=== PATIENT | female | born 1950 | race Caucasian/White ===

== ENCOUNTER 2017-08-28 09:44 | Emergency (ER) | payer MEDICARE ==
[~2017-08-28] VITALS: Ht 167.6 cm; Wt 72.7 kg
[2017-08-28 09:47] VITALS: BP 155/86
[2017-08-28 10:41] LABS: EOSINOPHILS # (AUTO) 0.2 X10'3 (0-0.9); LYMPHOCYTES # (AUTO) 1.5 X10'3 (1.1-4.8); MONOCYTES # (AUTO) 0.5 X10'3 (0-0.9); RED CELL DISTRIBUTION WIDTH 13.9 % (11.5-14.5)
[2017-08-28 10:43] LABS: BASOPHILS # (AUTO) 0.1 X10'3 (0-0.2); BASOPHILS % (AUTO) 1.2 % (0-1); HEMATOCRIT 48.1 % (35.0-45.0); HEMOGLOBIN 16.1 g/dl (12.0-16.0); LYMPHOCYTES % (AUTO) 16.2 % (21-51); MEAN CORPUSCULAR HEMOGLOBIN 27.6 PG (27.0-31.0); MEAN CORPUSCULAR HGB CONC 33.5 % (33.0-36.5); MEAN CORPUSCULAR VOLUME 82.5 FL (78-98); MEAN PLATELET VOLUME 8.7 FL (7.4-10.4); MONOCYTES % (AUTO) 5.8 % (2-12); NEUTROPHILS # (AUTO) 6.9 X10'3 (1.8-7.7); NEUTROPHILS % (AUTO) 74.8 % (42-75); PLATELET COUNT 242 X10'3 (140-440); RED BLOOD COUNT 5.83 X10'6 (4.20-5.60); WHITE BLOOD COUNT 9.2 X10'3 (4.5-11.0)
[2017-08-28 10:55] LABS: ALANINE AMINOTRANSFERASE 20 U/L (12-78); ALBUMIN 4.1 G/DL (3.4-5.0); ALBUMIN/GLOBULIN RATIO 1.1 (1.1-1.5); ALKALINE PHOSPHATASE 69 IU/L (46-116); ANION GAP 12 (8-16); ASPARTATE AMINO TRANSFERASE 17 U/L (10-37); BILIRUBIN,TOTAL 0.4 MG/DL (0.1-1.0); BLOOD UREA NITROGEN 10 MG/DL (7-18); BUN/CREATININE RATIO 15.9 (6.6-38.0); CALCIUM 8.8 MG/DL (8.5-10.1); CHLORIDE 105 MMOL/L (99-107); CREATININE 0.63 MG/DL (0.40-0.90); GLUCOSE 94 MG/DL (70-104); POTASSIUM 4.3 MMOL/L (3.5-5.1); SODIUM 141 MMOL/L (135-145); TOTAL CARBON DIOXIDE 23.6 MMOL/L (24-32); eGFR > 90 ML/MIN
== END 2017-08-28 12:23 | disposition left against medical advice (07) ==
LOC: ER 09:44
DX: R07.89 Other chest pain (principal); Z53.21 Procedure and treatment not carried out due to patient leaving prior to being seen by health care provider
CPT/HCPCS: 36415; 80053; 84484; 85025; 93005

== ENCOUNTER 2017-12-05 12:29 | Outpatient (CLI) | payer MEDICARE, BC | END 2017-12-05 23:59 | disposition home or self-care (01) | LOC: CARD DIAG 12:29 | PROVIDERS: ATTEND Internal Medicine Cardiovascular Disease | DX: I08.2 Rheumatic disorders of both aortic and tricuspid valves (principal) | CPT/HCPCS: 93306 ==

== ENCOUNTER 2018-09-08 13:33 | Outpatient (CLI) | payer MEDICARE, BC | END 2018-09-08 23:59 | disposition home or self-care (01) | LOC: RAD 13:33 | PROVIDERS: ATTEND Emergency Medicine | DX: Z45.2 Encounter for adjustment and management of vascular access device (principal) | CPT/HCPCS: 36569; 76937 ==

== ENCOUNTER 2019-01-06 09:37 | Inpatient (IN) | payer MEDICARE, BC ==
[2019-01-06] VITALS (10 sets, daily range): BP systolic 133–152; BP diastolic 59–78
[~2019-01-06] VITALS: Ht 167.6 cm; Wt 66.5 kg
[2019-01-06] MEDS ORDERED: aspirin 81mg tab.chew PO ONE (10:35)
[2019-01-06] MEDS ORDERED: nitroGLYCERIN 0.4mg SUBLingual tab SL PRN (10:35)
[2019-01-06 10:37] LABS: BASOPHILS # (AUTO) 0.1 X10'3 (0-0.2); BASOPHILS % (AUTO) 0.8 % (0-1); EOSINOPHILS # (AUTO) 0.1 X10'3 (0-0.9); EOSINOPHILS % (AUTO) 1.2 % (0-6); HEMATOCRIT 41.5 % (35.0-45.0); HEMOGLOBIN 13.8 g/dl (12.0-16.0); LYMPHOCYTES # (AUTO) 1.6 X10'3 (1.1-4.8); LYMPHOCYTES % (AUTO) 17.4 % (21-51); MEAN CORPUSCULAR HEMOGLOBIN 27.6 PG (27.0-31.0); MEAN CORPUSCULAR HGB CONC 33.2 g/dL (33.0-36.5); MEAN CORPUSCULAR VOLUME 83.1 FL (78-98); MEAN PLATELET VOLUME 8.4 FL (7.4-10.4); MONOCYTES # (AUTO) 0.5 X10'3 (0-0.9); MONOCYTES % (AUTO) 5.8 % (2-12); NEUTROPHILS # (AUTO) 6.9 X10'3 (1.8-7.7); NEUTROPHILS % (AUTO) 74.8 % (42-75); PLATELET COUNT 240 X10'3 (140-440); RED CELL DISTRIBUTION WIDTH 14.1 % (11.5-14.5); WHITE BLOOD COUNT 9.2 X10'3 (4.5-11.0)
[2019-01-06 10:42] LABS: ALANINE AMINOTRANSFERASE 16 U/L (12-78); ALBUMIN 3.5 G/DL (3.4-5.0); ALKALINE PHOSPHATASE 73 IU/L (46-116); ANION GAP 10 (8-16); ASPARTATE AMINO TRANSFERASE 21 U/L (10-37); BILIRUBIN,TOTAL 0.3 MG/DL (0.1-1.0); BLOOD UREA NITROGEN 11 MG/DL (7-18); BUN/CREATININE RATIO 20.4 (6.6-38.0); CALCIUM 8.4 MG/DL (8.5-10.1); CHLORIDE 109 MMOL/L (99-107); CREATININE 0.54 MG/DL (0.40-0.90); GLUCOSE 92 MG/DL (70-104); SODIUM 143 MMOL/L (135-145); TOTAL CARBON DIOXIDE 24.5 MMOL/L (24-32); TOTAL PROTEIN 6.9 G/DL (6.4-8.2); eGFR > 90 ML/MIN
[2019-01-06 10:48] LABS: PARTIAL THROMBOPLASTIN TIME 30 SECONDS (22-32)
--- NOTE | 2019-01-06 11:00 | NUR ---
DR OCHOA REVIEWED XRAY AND VERFIED PICC PLACEMENT. OKAYED PICC FOR USE.
--- NOTE | 2019-01-06 12:50 | NUR ---
pT IS NOW NPO. PT STATES SHE LAST ATE AN EGG WITH TWO YOLKS AT 0800 THIS AM
[2019-01-06] MEDS ORDERED: magnesium hydroxide 30ml (MOM) UD suspension PO PRN (12:55)
[2019-01-06] MEDS ORDERED: ondansetron/PF 4mg/2ml inj IV PRN (12:55)
[2019-01-06] MEDS ORDERED: morphine 2 MG/ML inj. syringe IV PRN ×2 (12:55)
[2019-01-06] MEDS ORDERED: mag hydrox/Alum hydrox/simeth 30ml oral suspension PO PRN (12:55)
[2019-01-06] MEDS: normal saline 1000ml 1,000 ML IV SCH ×2 (13:09→22:20)
[2019-01-06] MEDS ORDERED: IBUP-2417 PEG (13:27)
[2019-01-06] MEDS ORDERED: LIOT5TAB10 PO (13:27)
[2019-01-06] MEDS ORDERED: MULT1TAB74 PO (13:27)
[2019-01-06] MEDS ORDERED: LIDOcaine/PRILOcaine 5gm cream TP ONE (15:30)
[2019-01-06] MEDS ORDERED: verapamil 2.5 mg/ml inj IV ONE (16:33)
[2019-01-06] MEDS ORDERED: nitroGLYCERIN-Tridil 50MG/D5W 250 ML IV ONE (16:33)
[2019-01-06] MEDS ORDERED: midazolam 2 mg/2 ml injection ONE (16:33)
[2019-01-06] MEDS ORDERED: fentaNYL/PF 50MCG/1 ML 2ML syringe ONE (16:34)
[2019-01-06] MEDS ORDERED: iohexol 350 MG/ML 50ML vial IV ONE (16:34)
[2019-01-06] MEDS ORDERED: heparin 1,000unit/ml 10ml vial 10 ML ONE (16:34)
[2019-01-06] MEDS ORDERED: iohexol 350MG/ML 100ml bottle IV ONE ×2 (16:34→17:24)
[2019-01-06] MEDS ORDERED: LIDOcaine 1% (10mg/ml)w/preservative injection 20ml MDV ONE (16:38)
--- NOTE | 2019-01-06 17:55 | NUR ---
PATIENT RETURNED TO ROOM 307 ALERT ORIENTED, CALM, AND COOPERATIVE. DENIES PAIN. PATIENT HAD A HEART CATH WITH RIGHT RADIAL APPROACH. BAND IS IN PLACE WITH NO SIGNS OF BLEEDING OR HEMATOMA. VITAL SIGNS STABLE. FIRST RELEASE OF AIR ORDERED FOR 1944, CHARGE NURSE JAYLENE MADE AWARE.
--- NOTE | 2019-01-06 18:00 | NUR ---
Patient in room MED 307. I have received report from Yumiko REESE and had the opportunity to ask questions and assume patient care.
[2019-01-06] MEDS: acetaminophen 325mg tablet PO PRN (18:57)
[2019-01-06] MEDS: carVEDilol 3.125mg tablet PO SCH (19:47)
[2019-01-06] MEDS ORDERED: heparin, porcine 5000 units/ml vial SQ SCH (20:00)
[2019-01-07 02:00] VITALS: BP 146/69
[2019-01-07] MEDS: acetaminophen 325mg tablet PO PRN (04:29)
[2019-01-07 05:07] LABS: BASOPHILS % (AUTO) 0.5 % (0-1); EOSINOPHILS # (AUTO) 0.2 X10'3 (0-0.9); EOSINOPHILS % (AUTO) 2.2 % (0-6); HEMATOCRIT 35.6 % (35.0-45.0); LYMPHOCYTES # (AUTO) 1.7 X10'3 (1.1-4.8); LYMPHOCYTES % (AUTO) 22.2 % (21-51); MEAN CORPUSCULAR HEMOGLOBIN 28.4 PG (27.0-31.0); MEAN CORPUSCULAR HGB CONC 33.8 g/dL (33.0-36.5); MEAN PLATELET VOLUME 8.4 FL (7.4-10.4); MONOCYTES # (AUTO) 0.5 X10'3 (0-0.9); MONOCYTES % (AUTO) 6.7 % (2-12); NEUTROPHILS # (AUTO) 5.4 X10'3 (1.8-7.7); NEUTROPHILS % (AUTO) 68.4 % (42-75); PLATELET COUNT 198 X10'3 (140-440); RED BLOOD COUNT 4.24 X10'6 (4.20-5.60); RED CELL DISTRIBUTION WIDTH 14.3 % (11.5-14.5); WHITE BLOOD COUNT 7.9 X10'3 (4.5-11.0)
[2019-01-07 05:19] LABS: ALBUMIN 3.1 G/DL (3.4-5.0); ANION GAP 8 (8-16); BLOOD UREA NITROGEN 9 MG/DL (7-18); BUN/CREATININE RATIO 15.3 (6.6-38.0); CALCIUM 8.5 MG/DL (8.5-10.1); CHLORIDE 110 MMOL/L (99-107); CHOL/HDL RATIO 3.2 (0.00-4.99); CHOLESTEROL 140 MG/DL (0-200); CREATININE 0.59 MG/DL (0.40-0.90); GLUCOSE 72 MG/DL (70-104); HDL CHOLESTEROL 44 MG/DL (35-60); LDL CHOLESTEROL 86 MG/DL (50-100); POTASSIUM 3.3 MMOL/L (3.5-5.1); SODIUM 144 MMOL/L (135-145); TOTAL CARBON DIOXIDE 25.8 MMOL/L (24-32); TRIGLYCERIDES 99 MG/DL (20-135); eGFR > 90 ML/MIN
[2019-01-07 06:00] VITALS: BP 142/66
--- NOTE | 2019-01-07 06:33 | NUR ---
Problems reprioritized. Patient report given, questions answered & plan of care reviewed with ALEX REESE.
[2019-01-07] MEDS ORDERED: aspirin 81mg tablet.DR PO SCH (08:00)
[2019-01-07] MEDS ORDERED: atorvastatin 20mg tablet PO SCH (08:00)
[2019-01-07] MEDS ORDERED: non-formulary drug (Multivitamins 1 TAB) PO SCH (08:00)
[2019-01-07] MEDS ORDERED: multivitamins, therapeutics tablet PO SCH (08:00)
[2019-01-07] MEDS ORDERED: liothyronine sod 5mcg tablet PO SCH (08:00)
[2019-01-07] MEDS: carVEDilol 3.125mg tablet PO SCH (08:30)
--- NOTE | 2019-01-07 08:51 | NUR ---
Paged hospitalist, "Dilia [id number]- Room 307 JujuJade has K+ 3.3, do you want to replace?"
[2019-01-07] MEDS ORDERED: potassium Cl 20 mEq SR tablet PO STA (08:52)
[2019-01-07] MEDS: normal saline 1000ml 1,000 ML IV SCH (08:52)
[2019-01-07] MEDS ORDERED: FLU VACC QS2019-20 36MOS UP/PF 60 MCG/0.5 ML SYRINGE IMVAC ONE (10:00)
--- NOTE | 2019-01-07 11:00 | NUR ---
[facility] med administration and documentation: I have reviewed and agree with all interventions, assessments performed and documented by Elisa REESE.
== END 2019-01-07 10:45 | disposition home or self-care (01) | DRG 880 ==
LOC: ER 09:38 → ED HOLD 12:55 → MED 3N 14:40
PROVIDERS: ADMIT Family Medicine; ATTEND Family Medicine
PROC: 4A023N7 Measurement of Cardiac Sampling and Pressure, Left Heart, Percutaneous Approach (ICD-10-PCS; principal; 2019-01-06)
PROC: B2111ZZ Fluoroscopy of Multiple Coronary Arteries using Low Osmolar Contrast (ICD-10-PCS; 2019-01-06)
PROC: B2151ZZ Fluoroscopy of Left Heart using Low Osmolar Contrast (ICD-10-PCS; 2019-01-06)
PROC: B3101ZZ Fluoroscopy of Thoracic Aorta using Low Osmolar Contrast (ICD-10-PCS; 2019-01-06)
DX: F41.9 Anxiety disorder, unspecified (principal); I24.9 Acute ischemic heart disease, unspecified; E87.6 Hypokalemia; E03.9 Hypothyroidism, unspecified; I25.10 Atherosclerotic heart disease of native coronary artery without angina pectoris; Z90.710 Acquired absence of both cervix and uterus; Z82.49 Family history of ischemic heart disease and other diseases of the circulatory system; Z98.49 Cataract extraction status, unspecified eye; Z28.21 Immunization not carried out because of patient refusal
CPT/HCPCS: 36415; 71045; 80048; 80053; 80061; 84484; 85025; 85610; 85730; 87081; 93005; 93458; 93567; 99152; 99153; 99285; A4620; A5120; C1769; C1894; G0378; J1644; J2001; J2250; J3010; J3490; J7030; Q2037; Q9967

== ENCOUNTER 2020-10-30 07:19 | Emergency (ER) | payer MEDICARE, BC ==
[~2020-10-30] VITALS: Ht 167.6 cm; Wt 70.0 kg
[~2020-10-30 07:19] MED LIST: IBUP-2417 PEG; LIOT5TAB10 PO; MULT-620 PO
[2020-10-30 08:48] LABS: BASOPHILS % (AUTO) 0.2 % (0-1); EOSINOPHILS # (AUTO) 0.1 X10'3 (0-0.9); EOSINOPHILS % (AUTO) 0.9 % (0-6); HEMATOCRIT 42.4 % (35.0-45.0); HEMOGLOBIN 14.1 g/dl (12.0-16.0); LYMPHOCYTES # (AUTO) 1.8 X10'3 (1.1-4.8); MEAN CORPUSCULAR HEMOGLOBIN 27.9 PG (27.0-31.0); MEAN CORPUSCULAR HGB CONC 33.1 g/dL (33.0-36.5); MEAN CORPUSCULAR VOLUME 84.2 FL (78-98); MEAN PLATELET VOLUME 8.5 FL (7.4-10.4); MONOCYTES # (AUTO) 1.6 X10'3 (0-0.9); MONOCYTES % (AUTO) 9.4 % (2-12); NEUTROPHILS % (AUTO) 78.5 % (42-75); PLATELET COUNT 235 X10'3 (140-440); RED BLOOD COUNT 5.04 X10'6 (4.20-5.60); RED CELL DISTRIBUTION WIDTH 14.2 % (11.5-14.5); WHITE BLOOD COUNT 16.6 X10'3 (4.5-11.0)
[2020-10-30 08:52] LABS: ALANINE AMINOTRANSFERASE 20 U/L (12-78); ALBUMIN 3.9 G/DL (3.4-5.0); ALBUMIN/GLOBULIN RATIO 1.1 (1.1-1.5); ALKALINE PHOSPHATASE 74 IU/L (46-116); ANION GAP 9 (8-16); ASPARTATE AMINO TRANSFERASE 20 U/L (10-37); BILIRUBIN,TOTAL 0.3 MG/DL (0.1-1.0); BLOOD UREA NITROGEN 13 MG/DL (7-18); BUN/CREATININE RATIO 19.1 (6.6-38.0); CALCIUM 8.7 MG/DL (8.5-10.1); CHLORIDE 105 MMOL/L (99-107); CREATININE 0.68 MG/DL (0.40-0.90); GLUCOSE 90 MG/DL (70-104); POTASSIUM 3.5 MMOL/L (3.5-5.1); SODIUM 144 MMOL/L (135-145); TOTAL CARBON DIOXIDE 30.3 MMOL/L (24-32); TOTAL PROTEIN 7.3 G/DL (6.4-8.2); eGFR 85 ML/MIN
[2020-10-30] MEDS ORDERED: aspirin 81mg tab.chew PO ONE (09:30)
[2020-10-30] MEDS ORDERED: acetaminophen 325mg tablet PO PRN (09:45)
[2020-10-30] MEDS ORDERED: potassium Cl 20 mEq SR tablet PO PRN ×2 (09:45)
[2020-10-30] MEDS ORDERED: potassium Cl 40MEQ/1/2NS 520ml 520 ML IV PRN ×2 (09:45)
[2020-10-30] MEDS ORDERED: magnesium hydroxide 30ml (MOM) UD suspension PO PRN (09:45)
[2020-10-30] MEDS ORDERED: ondansetron/PF 4mg/2ml inj IV PRN (09:45)
[2020-10-30] MEDS ORDERED: magnesium 2GM in 50ml NS 50 ML IV PRN (09:45)
[2020-10-30] MEDS ORDERED: mag hydrox/Alum hydrox/simeth 30ml oral suspension PO PRN (09:45)
[2020-10-30] MEDS ORDERED: magnesium 4gm in 100ml NS 100 ML IV PRN (09:45)
[2020-10-30] MEDS ORDERED: PERFLUTREN PROTEIN-A MICROSPHR (Optison) 0.22 MG/ML 3ML VIAL IV ONE (09:45)
[2020-10-30] MEDS: normal saline 1000ml 1,000 ML IV SCH ×2 (10:41→19:41)
--- NOTE | 2020-10-30 12:28 | NUR ---
pt's echo is finished, pt already on monitoring
--- NOTE | 2020-10-30 12:33 | NUR ---
pt now appears to be in a sinus rhythm with occasional pvc's
[2020-10-30] MEDS ORDERED: MULT-1074 PO (12:39)
[2020-10-30] MEDS ORDERED: AZIT-63 PO (15:51)
[2020-10-30] MEDS ORDERED: PRED20TA PO (15:51)
[2020-10-30] MEDS ORDERED: PROG100C11 PO (15:51)
[2020-10-30] MEDS ORDERED: MELA10TA2 PO (15:52)
[2020-10-30] MEDS: K and/or MAG REPLACEMENT MC SCH (20:00)
[2020-10-30] MEDS ORDERED: enoxaparin 40mg/0.4ml syringe SQ SCH (20:00)
--- NOTE | 2020-10-30 21:39 | NUR ---
pt moved from [facility] to hospital bed. will continue to monitor.
[2020-10-31 04:51] LABS: BASOPHILS % (AUTO) 0.5 % (0-1); EOSINOPHILS # (AUTO) 0.1 X10'3 (0-0.9); EOSINOPHILS % (AUTO) 1.9 % (0-6); HEMATOCRIT 37.9 % (35.0-45.0); HEMOGLOBIN 12.4 g/dl (12.0-16.0); LYMPHOCYTES % (AUTO) 25.5 % (21-51); MEAN CORPUSCULAR HEMOGLOBIN 27.6 PG (27.0-31.0); MEAN CORPUSCULAR HGB CONC 32.7 g/dL (33.0-36.5); MEAN CORPUSCULAR VOLUME 84.4 FL (78-98); MEAN PLATELET VOLUME 8.5 FL (7.4-10.4); MONOCYTES # (AUTO) 0.6 X10'3 (0-0.9); MONOCYTES % (AUTO) 7.7 % (2-12); NEUTROPHILS % (AUTO) 64.4 % (42-75); PLATELET COUNT 200 X10'3 (140-440); RED BLOOD COUNT 4.49 X10'6 (4.20-5.60); WHITE BLOOD COUNT 7.8 X10'3 (4.5-11.0)
[2020-10-31 05:04] LABS: ALANINE AMINOTRANSFERASE 12 U/L (12-78); ALBUMIN/GLOBULIN RATIO 1.2 (1.1-1.5); ALKALINE PHOSPHATASE 69 IU/L (46-116); ANION GAP 10 (8-16); ASPARTATE AMINO TRANSFERASE 13 U/L (10-37); BILIRUBIN,TOTAL 0.3 MG/DL (0.1-1.0); BLOOD UREA NITROGEN 13 MG/DL (7-18); CALCIUM 7.6 MG/DL (8.5-10.1); CHLORIDE 112 MMOL/L (99-107); GLUCOSE 81 MG/DL (70-104); POTASSIUM 3.3 MMOL/L (3.5-5.1); SODIUM 146 MMOL/L (135-145); TOTAL CARBON DIOXIDE 24.5 MMOL/L (24-32); TOTAL PROTEIN 5.6 G/DL (6.4-8.2); eGFR > 90 ML/MIN
[2020-10-31] MEDS: K and/or MAG REPLACEMENT MC SCH (08:00)
--- NOTE | 2020-10-31 08:04 | NUR ---
family member at bedside ,pt is eating her breakfast at this time.
[2020-10-31 08:21] LABS: CHOL/HDL RATIO 2.5 (0.00-4.99); CHOLESTEROL 135 MG/DL (0-200); HDL CHOLESTEROL 53 MG/DL (35-60); LDL CHOLESTEROL 71 MG/DL (50-100); TRIGLYCERIDES 80 MG/DL (20-135)
[2020-10-31] MEDS: normal saline 1000ml 1,000 ML IV SCH (08:33)
--- NOTE | 2020-10-31 10:04 | NUR ---
alonso choreography director at bedside ,spoke to her about pt optison order as per her non admin the med as pt does not not needed.will follow the orders.
[2020-10-31] MEDS ORDERED: POTA20TA19 PO (10:44)
[2020-10-31 10:51] VITALS: BP 152/69
--- NOTE | 2020-10-31 11:42 | NUR ---
dr spencer told the pt that she is getting d/c,informed the pt that we do not have d/c paperwork or orders yet.
--- NOTE | 2020-11-04 13:48 | NUR ---
Case Management DC follow up: Spoke w/pt spouse, Tez via telephone. s/p: CP, palpitations. Pt spouse Reports:"shes doing fairly well, we've been dealing with this for years". Denies for pt: Acute/continuous CP, emergent SOB, resp distress, orthopnea, dyspnea, N/V, hematemesis, weakness, vertigo, syncope episodes, orthostatic hypotension, YIP, blurry vision, s/s stroke/FAST, dysphagia, bladder pain, dysuria, polyuria, hematuria, retention, abd pain/distention, hematochezia, melena, unexplained bruising, bleeding, fever, chills. Verbalizes understanding of new Rx: K-dur , why prescribed; continues/resumes current Rx as ordered, denies ase r/t polypharmacy. Verbalizes compliance w/aftercare. Verbalizes understanding of s/s that warrant 9-11/ER visit for further evaluation. Pt acknowledges need to schedule/confirm/keep follow up appt w/PCP Ender; will call to schedule. [employer]/[facility] in a few months. Needs met, questions/concerns addressed at DC; No further questions/concerns r/t recent hospital stay and/or DC status at this time.
== END 2020-10-30 12:44 | disposition home or self-care (01) ==
LOC: ER 07:20 → ED HOLD 09:45 → UNDOADMOB 09:45 → ER 12:44 → UNDODISOB 10-31 12:17
DX: I24.9 Acute ischemic heart disease, unspecified (principal); I25.10 Atherosclerotic heart disease of native coronary artery without angina pectoris; R00.2 Palpitations; I49.9 Cardiac arrhythmia, unspecified; E03.9 Hypothyroidism, unspecified; I10 Essential (primary) hypertension; I47.1 Supraventricular tachycardia; Z79.899 Other long term (current) drug therapy
CPT/HCPCS: 36415; 71045; 80053; 84443; 84484; 85025; 85379; 93005; 93306; 96360; 96361; 96372; 99285; J7030; 80061; 83735; G0378; J1650

== ENCOUNTER 2022-06-02 17:31 | Emergency (ER) | payer MEDICARE ==
[~2022-06-02] VITALS: Ht 160 cm; Wt 63.0 kg
[~2022-06-02 17:31] MED LIST changes: +AZIT-83 PO; -IBUP-2417 PEG; -LIOT5TAB10 PO; +MELA10TA2 PO; +MULT-1074 PO; -MULT-620 PO; +POTA-207 PO; +PRED20TA PO; +PROG100C11 PO
[2022-06-02 18:14] LABS: BASOPHILS # (AUTO) 0.1 X10'3 (0-0.2); EOSINOPHILS # (AUTO) 0.1 X10'3 (0-0.9); HEMOGLOBIN 12.2 g/dl (12.0-16.0)
[2022-06-02 18:15] LABS: BASOPHILS % (AUTO) 0.6 % (0-1); EOSINOPHILS % (AUTO) 0.8 % (0-6); HEMATOCRIT 37.4 % (35.0-45.0); LYMPHOCYTES # (AUTO) 1.5 X10'3 (1.1-4.8); LYMPHOCYTES % (AUTO) 12.6 % (21-51); MEAN CORPUSCULAR HEMOGLOBIN 25.1 PG (27.0-31.0); MEAN CORPUSCULAR HGB CONC 32.6 g/dL (33.0-36.5); MEAN CORPUSCULAR VOLUME 76.9 FL (78-98); MONOCYTES # (AUTO) 0.8 X10'3 (0-0.9); MONOCYTES % (AUTO) 6.7 % (2-12); NEUTROPHILS # (AUTO) 9.5 X10'3 (1.8-7.7); NEUTROPHILS % (AUTO) 79.3 % (42-75); PLATELET COUNT 260 X10'3 (140-440); RED BLOOD COUNT 4.87 X10'6 (4.20-5.60); RED CELL DISTRIBUTION WIDTH 18.7 % (11.5-14.5)
[2022-06-02 18:24] LABS: ALANINE AMINOTRANSFERASE 17 U/L (12-78); ALBUMIN 3.9 G/DL (3.4-5.0); ALBUMIN/GLOBULIN RATIO 1.1 (1.1-1.5); ALKALINE PHOSPHATASE 100 IU/L (46-116); ANION GAP 7 (8-16); ASPARTATE AMINO TRANSFERASE 32 U/L (10-37); BILIRUBIN,TOTAL 0.4 MG/DL (0.1-1.0); BLOOD UREA NITROGEN 12 MG/DL (7-18); CALCIUM 9.4 MG/DL (8.5-10.1); CHLORIDE 100 MMOL/L (99-107); GLUCOSE 105 MG/DL (70-104); POTASSIUM 3.8 MMOL/L (3.5-5.1); SODIUM 136 MMOL/L (135-145); TOTAL CARBON DIOXIDE 28.9 MMOL/L (24-32); TOTAL PROTEIN 7.4 G/DL (6.4-8.2); eGFR > 90 ML/MIN
[2022-06-02 18:59] LABS: TOTAL CELLS COUNTED 100
[2022-06-02 19:00] LABS: ANISOCYTOSIS 2+; MICROCYTOSIS 1+; PLATELET ESTIMATE NORMAL
[2022-06-02 19:03] LABS: GIANT PLATELET FEW
[2022-06-02 19:23] LABS: D-DIMER 1.41 MG/L FEU (0-0.50)
[2022-06-02 20:00] VITALS: BP 155/81
[2022-06-02] MEDS ORDERED: iohexol 350MG/ML 100ml bottle IV ONE (20:12)
== END 2022-06-02 22:35 | disposition home or self-care (01) ==
LOC: ER 17:32
DX: R07.9 Chest pain, unspecified (principal); R06.02 Shortness of breath
CPT/HCPCS: 36415; 71045; 71275; 80053; 83880; 84439; 84443; 84484; 85007; 85025; 85379; 93005; 99285; Q9967